=== PATIENT | female | born 1990 | race Caucasian/White ===

== ENCOUNTER 2017-03-08 19:58 | Emergency (ER) | payer MEDICAID ==
[~2017-03-08] VITALS: Ht 167.6 cm; Wt 60.0 kg
[~2017-03-08 19:58] MED LIST: CIPR500T4 PO; IBUP-1542 PO; PREN1TAB62 PO
[2017-03-08 20:21] VITALS: Ht 167.6 cm; Wt 60.0 kg
[2017-03-08] MEDS ORDERED: ONDANSETRON 4 MG INJ IV STA (21:36)
[2017-03-08] MEDS ORDERED: SOD CHLORIDE 0.9% 1,000 ML IV STA (21:36)
[2017-03-08] MEDS ORDERED: ACETAMINOPHEN 325 MG TAB PO STA (21:36)
--- NOTE | 2017-03-08 21:41 | ERD ---
ER Documentation Chief Complaint Date/Time DATE: 03/08/17 TIME: 21:38 Chief Complaint 11wks preg; cramping; n/v x 2 days HPI This pleasant 26-year-old female presents to emergency department today reporting 3, para 1-1, 0. Patient reports lower abdominal cramping, vomiting even though she is using Zofran. Patient states she has not been able to tolerate food or liquid since this morning. Denies vaginal bleeding, or dysuria. ROS All systems reviewed and are negative except as per history of present illness. Medications Home Meds Active Scripts Ciprofloxacin Hcl* (Ciprofloxacin Hcl*) 500 Mg Tablet, 500 MG PO BID for 10 Days , TAB Prov:ZHENG ALEMAN PA-C 03/18/16 Ibuprofen* (Motrin*) 600 Mg Tab, 600 MG PO Q6H Y for PAIN, #40 Prov:DANIELA MORALES MD 03/02/15 Reported Medications Vit-Iron Fumarate-FA ( Vitamin Tablet) 1 Each Tablet, 1 TAB PO DAILY, TAB 02/28/15 Allergies Allergies: Coded Allergies: No Known Allergy (Unverified , 10/04/14) PMhx/Soc Medical and Surgical Hx: pt denies Medical Hx, pt denies Surgical Hx History of Surgery: No Anesthesia Reaction: No Hx Neurological Disorder: No Hx Respiratory Disorders: No Hx Cardiac Disorders: No Hx Psychiatric Problems: No Hx Miscellaneous Medical Probl: No Hx Alcohol Use: No Hx Substance Use: No Hx Tobacco Use: No Smoking Status: Never smoker Physical Exam Vitals Vital Signs Date Time Temp Pulse Resp B/P Pulse Ox O2 Delivery O2 Flow Rate FiO2 03/08/17 20:21 98.7 75 18 143/66 98 Vitals stable, nursing notes reviewed Physical Exam Const: No acute Head: Atraumatic Eyes: Normal Conjunctiva, PERRLA, EOMI ENT: Normal External Ears, Nose and Mouth. Mucous membranes dry, lips are dry Neck: Resp: Chest rise and fall symmetrically ,clear to auscultation bilaterally no respiratory distress Cardio: Regular rate and rhythm, no murmurs Abd: Soft, no abdominal tenderness, no CVA tenderness Skin: Back: Ext: Neur: Awake and alert Psych: Normal Mood and Affect Results 24 hrs Laboratory Tests Test 03/08/17 21:55 Urine Color LT. YELLOW Urine Clarity CLEAR Urine pH 7.0 Urine Specific [place] 1.015 Urine Ketones 15 Urine Nitrite NEGATIVE Urine Bilirubin NEGATIVE Urine Urobilinogen 0.2 E.U./dL Urine Leukocyte Esterase NEGATIVE Urine Hemoglobin NEGATIVE Urine Glucose NEGATIVE% Urine Total Protein NEGATIVE Current Medications Medications (Trade) Dose Ordered Sig/Silvano Route PRN Reason Start Time Stop Time Status Last Admin Dose Admin Sodium Chloride (NS) 1,000 ml @ 1,000 mls/hr Q1H STAT IV 03/08/17 21:36 03/08/17 22:35 DC 03/08/17 21:52 Acetaminophen (Tylenol Tab) 650 mg ONCE STAT PO 03/08/17 21:36 03/08/17 21:38 DC 03/08/17 21:52 Ondansetron HCl (Zofran Inj) 4 mg ONCE STAT IV 03/08/17 21:36 03/08/17 21:38 DC 03/08/17 21:52 Procedures/MDM PROCEDURE: US OB. CLINICAL INDICATION: , nausea. TECHNIQUE: Multiple sonographic images of the pelvis were obtained. Transabdominal views of the pelvis are available for review. The images were reviewed on a PACS workstation. COMPARISON: No prior studies are available for comparison. FINDINGS: The cervix is closed, measuring 4.7 cm. There is a single intrauterine . The crown-rump length equals 5.32 cm which corresponds to a 12-week-0 -day gestational age by ultrasound criteria. cardiac activity measures 154 bpm. No subchorionic hematoma is identified. There is an anterior placenta , grade 0. The right ovary is not visualized. The left ovary measures 3.1 x 1.2 x 2.4 cm. Blood flow is demonstrated to the left ovary. The adnexa are unremarkable. There is no free pelvic fluid. IMPRESSION: 1. Single viable intrauterine gestation of approximately 12 weeks 0 days. 2. The estimated date of delivery is 09/20/2017. Electronically viewed and signed by .Drake Verdugo MD, MD on 03/08/2017 22:55 This pleasant 26-year-old female presents to the emergency department today with nausea, vomiting, and low abdominal cramping. Patient reports , approximately 11 weeks, -10 differential diagnosis includes but not limited to threatened miscarriage, dehydration, irretractable nausea. Urinary tract infection. Patient treated with IV fluid and Zofran effectively, urinalysis negative for any evidence of infection, no leukocytosis nitrates or microscopic hematuria. OB ultrasound shows the cervix is closed measuring 4.7 cm. There is a single intrauterine with a crown to rump length equals 5.32 cm which corresponds to a 12 week-0 day gestational by age by ultrasound criteria, cardiac activity measures 154 bpm. No subchorionic hematoma is identified. There is an anterior placenta, grade 0. Right ovary is not visualized, left ovary measures 3.11.22.4 cm. Blood flow is demonstrated to the left ovary. The adnexa are unremarkable. There is no free pelvic fluid. Estimated gestational delivery of 09/20/2017. Patient will be discharged with Zofran, increase fluids, increase rest, return to emergency department for vomiting not responding to Zofran, dehydration, vaginal bleeding , or pain. I feel the patient is stable for discharge at this time with outpatient management by [employer] ATTENDANT I have discussed results, examination findings, the treatment plan with the patient and family present prior to discharge. Indications for emergent reevaluation, side effects of medication were also discussed. All questions were answered. Patient verbalizes understanding and agrees with plan of care. Departure Diagnosis: Primary Impression: Nausea and vomiting Vomiting type: unspecified Vomiting Intractability: non-intractable Qualified Code: R11.2 - Non-intractable vomiting with nausea, unspecified vomiting type Condition: Good Patient Instructions: Nausea and Vomiting-Adult Additional Instructions: Thank you for for coming to [facility] for your care today. Please ask your nurse or provider if you have questions about your care today and do not leave until all your questions have been answered. Please use any medications given as directed and follow-up with your doctor (or the doctor you were referred to) in the next 2-3 days. If you do not have a primary care doctor you may follow up at the [facility] (listed below). You may also use motrin and tylenol as needed for fever and/or pain unless instructed otherwise by your provider or nurse. Indications for more urgent follow-up have been discussed, but you may return to the Emergency Department at ANY time for any worrisome or worsening symptoms. If you have abdominal pain, please know that no test or exam you received is perfect and you should follow up within 8 hours for continued pain. If you had any imaging studies today, such as an X-Ray or CT Scan, these studies will be reviewed later by a radiologist. You will be called if there are important findings that were not identified today, so make sure the contact information you provided at registration is correct. If you received any narcotic pain control medicine today, such as Vicodin, Morphine or Dilaudid, your coordination and judgment may be affected for a number of hours. Please do not drive or operate heavy machinery, and you may want someone to assist you at home. If you were given a prescription for narcotic medication, be aware that it is very addictive- use sparingly and only if necessary. JOHN KUHN March 08, 2017 21:41
[2017-03-08 22:54] LABS: ADD UMIC NO; URINE BILIRUBIN (Dip) NEGATIVE (NEGATIVE); URINE BLOOD (Dip) NEGATIVE (NEGATIVE); URINE COLOR LT. YELLOW (YELLOW); URINE GLUCOSE (Dip) NEGATIVE (NEGATIVE); URINE KETONES (Dip) 15 (NEGATIVE); URINE LEUKOCYTE ESTERASE (Dip) NEGATIVE (NEGATIVE); URINE NITRITE (Dip) NEGATIVE (NEGATIVE); URINE TOTAL PROTEIN (Dip) NEGATIVE (NEGATIVE); URINE UROBILINOGEN (Dip) 0.2 E.U./dL (0.1-1.0)
--- NOTE | 2017-03-08 22:55 | RADRPT ---
PROCEDURE: US OB. CLINICAL INDICATION: , nausea. TECHNIQUE: Multiple sonographic images of the pelvis were obtained. Transabdominal views of the p leticia are available for review. The images were reviewed on a PACS workstation. COMPARISON: No prior studies are available for comparison. FINDINGS: The cervix is closed, measuring 4.7 cm. There is a single intrauterine . The crown-rump le ngth equals 5.32 cm which corresponds to a 86-mmaq-1-day gestational age by ultrasound criteria. Fe apple cardiac activity measures 154 bpm. No subchorionic hematoma is identified. There is an anterio r placenta, grade 0. The right ovary is not visualized. The left ovary measures 3.1 x 1.2 x 2.4 cm. Blood flow is demon strated to the left ovary. The adnexa are unremarkable. There is no free pelvic fluid. IMPRESSION: 1. Single viable intrauterine gestation of approximately 12 weeks 0 days. 2. The estimated date of delivery is 09/20/2017. RPTAT: HTAR .Drake Verdugo MD, Date Time Electronically viewed and signed by .Drake Verdugo MD, on 03/08/2017 22:55 .R/
[2017-03-08] MEDS ORDERED: ONDA4TAB14 PO (23:32)
== END 2017-03-09 00:30 | disposition home or self-care (01) ==
LOC: FTE 19:58
DX: O21.9 Vomiting of pregnancy, unspecified (principal); Z3A.12 12 weeks gestation of pregnancy
CPT/HCPCS: 36415; 76801; 81003; 96374; J2405; J7030; Z7502; Z7610

== ENCOUNTER 2017-09-14 18:19 | Inpatient (IN) | payer MEDICAID ==
[~2017-09-14] VITALS: Ht 172.7 cm; Wt 72.6 kg
[~2017-09-14 18:19] MED LIST changes: +ONDA4TAB14 PO
[2017-09-14 18:42] VITALS: Ht 172.7 cm; Wt 72.6 kg
--- NOTE | 2017-09-14 20:10 | HP ---
Date/Time of Note Date/Time of Note DATE: 09/14/17 TIME: 20:05 OB - History Hx of Present Free Text/Dictation 27 yo at 39 wks gestation presents in active labor GBS neg. Chief Complaint: labor contractions Estimated Due Date: Sep 22, 2017 : 2 Para: 1 Care: Good Care Obstetrical Complications: None Medical Complications: None Past Family/Social History * Past Medical, Surgical, Family and Obstetric Histories reviewed from chart. OB Admission Exam Physical Exam HEENT: WNL Heart: Rhythm Normal Lungs: Clear, Equal Abdomen: WNL Extremities: Normal Reflexes: Normal Cervical Dilatation: 4cm Effacement: 50% Station: -2 Membranes: Intact Heart Rate: 140's Accelerations: Accelerations Present Decelerations: No Decelerations Varibility: Moderate Contractions on Admission: < 5 Minutes Apart Intensity: Moderate OB Assessment/Plan Reason for admission: active labor Plan: Expectant Management Induction Method: per Pitocin Protocol Other plan: OB ultrasound for EFW Pain meds as needed Augmentation per protocal prn Plan for Copies To: CC: DANIELA MORALES MD, BAHAREH MD Sep 14, 2017 20:10
[2017-09-14] MEDS ORDERED: LACTATED RINGER'S 1,000 ML IV SCH (20:49)
[2017-09-14] MEDS ORDERED: LACTATED RINGER'S 1,000 ML IV PRN (20:53)
[2017-09-14] MEDS ORDERED: CARBOPROST 250 MCG INJ IM PRN ×2 (21:00→23:00)
[2017-09-14] MEDS ORDERED: MISOPROSTOL 200 MCG TAB PR PRN ×2 (21:00→23:00)
[2017-09-14] MEDS ORDERED: OXYTOCIN 30 UNITS/LR 500 ML IV SCH ×2 (21:00)
[2017-09-14] MEDS ORDERED: METHYLERGONOVINE 0.2 MG INJ IM PRN ×2 (21:00→23:00)
[2017-09-14] MEDS ORDERED: LIDOCAINE 1% (MPF) 30 ML INJ INJ PRN (21:00)
[2017-09-14] MEDS ORDERED: BUTORPHANOL 2 MG INJ IV PRN ×2 (21:00)
[2017-09-14] MEDS ORDERED: IBUPROFEN 600 MG TAB PO PRN (21:00)
[2017-09-14] MEDS ORDERED: HYDROCODONE/APAP (5/325) TAB PO PRN (21:00)
[2017-09-14] MEDS ORDERED: OXYTOCIN 30 UNITS/LR 500 ML IV PRN ×2 (21:00→23:00)
--- NOTE | 2017-09-14 22:27 | RADRPT ---
PROCEDURE: US OB. CLINICAL INDICATION: Size and dates TECHNIQUE: Multiple sonographic images of the pelvis and gravid uterus were obtained. The images were reviewed on a PACS workstation. COMPARISON: US PELVIS 03/08/2017 FINDINGS: There is a single viable intrauterine gestation. Cardiac activity is present with 161 beats per min keenan. There is a vertex presentation. The placenta is anterior. There is no evidence for an abruption or placenta previa. There is a decreased amount of amniotic fluid with an DANISHA = 3.6 cm. Measurements were made in order to determine age. The results are as follows: BPD =9.2 cm HC =32.9 cm AC =33.8 cm FL =7.6 cm Estimated gestational age of approximately 37 weeks and 6 days based on ultrasound measurements. Clinical age: 38 weeks and 6 days. The estimated date of delivery is 09/29/17, based on ultrasound measurements. The EFW = 3338 g, 43.7%, based on LMP age. RPTAT: AA IMPRESSION: Single viable intrauterine gestation of approximately 37 weeks and 6 days based on ultrasound measu rements. Oligohydramnios. .Shelton Rodriguez MD, Date Time Electronically viewed and signed by .Shelton Rodriguez MD, on 09/14/2017 22:27 .S/
--- NOTE | 2017-09-14 22:29 | TRIAGE ---
OB Triage Datetime Report Generated by CPN: 09/14/2017 22:29 Datetime: 09/14/2017 21:00 Labor Evaluation Frequency: IRREGULAR Monitor Mode: External Duration (sec)2399: 60-100 Quality: Mild Pattern: Normal: <= 5 Contractions in 10 Minutes Resting Tone [place]: Relaxed Heart Rate FHR Baseline Rate: 135 Monitor Mode: External US FHR Baseline Changes: No Baseline Change Variability: Moderate 6-25 bpm Accelerations: 15X15 Decelerations: None Category: Category I Datetime: 09/14/2017 20:36 Vaginal Exam Dilatation (cms): 4.0 Effacement (%): 70 Station: -3 Exam By: Krystle MOCTEZUMA RN Vaginal Bleeding: None Cervix, Consistency: Soft Cervix, Position: Posterior Presentation 'A': Cephalic Datetime: 09/14/2017 20:31 FHR Baseline Changes: Bradycardia Datetime: 09/14/2017 19:19 Labor Evaluation Frequency: 5-6 Monitor Mode: External Duration (sec)2399: 60-100 Quality: Mild Pattern: Normal: <= 5 Contractions in 10 Minutes Resting Tone [place]: Relaxed Heart Rate FHR Baseline Rate: 145 Monitor Mode: External US FHR Baseline Changes: No Baseline Change Variability: Moderate 6-25 bpm Accelerations: 15X15 Decelerations: None Category: Category I Datetime: 09/14/2017 19:14 Pain Assessment Pain Scale: 6 Pain Presence: Intermittent Pain Type: Contraction Pain Location: Abdomen; Back Pain Relief Measures: Comfort Measures Datetime: 09/14/2017 19:05 Assessment Type: Triage Maternal Assessment Level of Consciousness: Fully Conscious DTR's/Clonus: DTRs 2+; No Clonus Headache: Denies Blurred Vision: No Respiratory Effort: Unlabored; Regular Rhythm; Equal Expansion Breath Sounds, Left: Clear and Equal Breath Sounds, Right: Clear and Equal Nausea/Vomiting: Denies RUQ Epigastric Pain: Denies Lower Extremities Edema: Bilateral Lower Extremities Degree: 1+ Upper Extremities Edema: None Degree: None Facial Edema: None Fall Risk Assessment History of Falling: (0) No Secondary Diagnosis: (0) No Ambulatory Aid: (0) Bedrest/Nurse Assist IV Therapy: (0) No Gait: (0) Normal/Bedrest/Immobile Mental Status: (0) Oriented to Own Ability Fall Score: 0 Fall Risk Score Definition: No Risk: No action required Datetime: 09/14/2017 18:41 Stage of : OB Triage Datetime: 09/14/2017 18:37 Stage of : OB Triage Assessment Type: Triage Maternal Assessment Level of Consciousness: Fully Conscious DTR's/Clonus: DTRs 2+; No Clonus Headache: Denies Blurred Vision: No Respiratory Effort: Unlabored; Regular Rhythm; Equal Expansion Breath Sounds, Left: Clear and Equal Breath Sounds, Right: Clear and Equal Nausea/Vomiting: Denies RUQ Epigastric Pain: Denies Facial Edema: None Temperature Route: Axillary Fall Risk Assessment History of Falling: (0) No Secondary Diagnosis: (0) No Ambulatory Aid: (0) Bedrest/Nurse Assist IV Therapy: (0) No Gait: (0) Normal/Bedrest/Immobile Mental Status: (0) Oriented to Own Ability Fall Score: 0 Fall Risk Score Definition: No Risk: No action required Labor Evaluation Frequency: 3-4 Monitor Mode: External Duration (sec)2399: 50-70 Quality: Mild Pattern: Normal: <= 5 Contractions in 10 Minutes Resting Tone [place]: Relaxed Interventions: Sterile Vaginal Exam Heart Rate FHR Baseline Rate: 145 Monitor Mode: External US Variability: Moderate 6-25 bpm Accelerations: 10X10 Decelerations: None Category: Category I Pain Assessment Pain Scale: 8 Pain Presence: Intermittent Pain Type: Cramping; Contraction Pain Location: Abdomen; Perineum Pain Goal: 3 Pain Relief Measures: Comfort Measures Vaginal Exam Dilatation (cms): 3.0 Effacement (%): 60 Station: -2 Exam By: S JESSICA Membrane Status: Intact Datetime: 09/14/2017 18:36 EGA: 38.6 Datetime: 09/14/2017 18:35 Time of Arrival: 09/14/2017 18:15 Arrived By: Ambulatory Arrived From: Home Chief Complaint: C/O UC'S Q 10-15 MIN THAT STARTED AT APPROX 0400, DENIES LEAKING OR BLEEDING Movement: Present Contractions: Irregular Contractions: 10-15 Rupture of Membranes: Denies Vaginal Bleeding: None Vaginal Discharge: Denies Recent Sexual Intercouse: Denies Abdominal Trauma: Not Applicable Patient Complaints: Contractions; Cramping Time Provider Notified: 09/14/2017 19:18 Provider Notified: DR MCKEON Initial Plan: MONITOR, VE
--- NOTE | 2017-09-14 22:46 | LDN ---
Date/Time of Note Date/Time of Note DATE: 09/14/17 TIME: 22:42 Delivery Summary Weeks of Gestation 2 para 1 at 39 weeks of gestation Baby girl, 9, 9 Weight 3540 grams/7 lbs. 13 oz. Placenta Delivered: Spontaneously Meconium: none Episiotomy: No Laceration repair: First-degree laceration repaired with 2-0 Vicryl Anesthesia type: Local Estimated blood loss: 200 Sponge & Needle done & correct: Yes All needle counts correct: Yes Any foreign bodies felt in the: No Problems: Delivery Information Sex Sex: female Apgars 1 Minute: 9 5 Minute: 9 Suctioning Nose & mouth suctioned at estela: Yes Umbilical Cord Umbilical cord with: 3 Vessels Cord presentations: no nuchal cord Cord Blood was obtained: Yes Mother & Baby Disposition Disposition Mom & Baby to Maternity; Good: Yes Copies To: CC: DANIELA MORALES MD, BAHAREH MD Sep 14, 2017 22:46
[2017-09-14] MEDS ORDERED: WITCH HAZEL/GLYCERIN PAD PR PRN (23:00)
[2017-09-14] MEDS ORDERED: BENZOCAINE 20% 56 ML SPRAY TOP PRN (23:00)
[2017-09-14] MEDS ORDERED: SENNA/DOCUSATE NA (8.6MG/50MG) TAB PO PRN (23:00)
[2017-09-14] MEDS ORDERED: LANOLIN 7 GM TUBE TOP PRN (23:00)
[2017-09-14] MEDS ORDERED: MAGNESIUM HYDROXIDE 30ML CUP PO PRN (23:00)
[2017-09-14] MEDS ORDERED: ONDANSETRON 4 MG INJ IV PRN (23:00)
[2017-09-14] MEDS ORDERED: DIBUCAINE 1% 30 GM OINT PR PRN (23:00)
[2017-09-14] MEDS ORDERED: ACETAMINOPHEN 325 MG TAB PO PRN ×2 (23:00)
[2017-09-14] MEDS: OXYTOCIN 30 UNITS/LR 500 ML IV SCH (23:14)
[2017-09-14 23:30] LABS: BASOPHILS % 0.2 % (0.0-2.0); EOSINOPHILS % 0.3 % (0.0-7.0); HEMATOCRIT 35.5 % (37.0-47.0); LYMPHOCYTES # 1.3 10^3/ul (0.8-2.9); MEAN CORPUSCULAR HEMOGLOBIN 32.3 pg (29.0-33.0); MEAN CORPUSCULAR HGB CONC 33.8 g/dl (32.0-37.0); MEAN CORPUSCULAR VOLUME 95.4 fl (82.0-101.0); MEAN PLATELET VOLUME 12.3 fl (7.4-10.4); MONOCYTE # 0.6 10^3/ul (0.3-0.9); MONOCYTES % 5.4 % (0.0-11.0); NEUTROPHIL # 8.7 10^3/ul (1.6-7.5); NEUTROPHILS % 81.6 % (39.0-77.0); PLATELET COUNT 210 10^3/UL (140-415); RED BLOOD COUNT 3.72 10^6/ul (4.20-5.40); RED CELL DISTRIBUTION WIDTH 12.9 % (11.5-14.5); WHITE BLOOD COUNT 10.6 10^3/ul (4.8-10.8)
[2017-09-15 00:02] LABS: INR 0.95; PROTIME 12.7 Sec (12.2-14.2)
[2017-09-15 00:03] LABS: PARTIAL THROMBOPLASTIN TIME 26.8 Sec (25.0-35.0)
[2017-09-15 01:05] VITALS: BP 124/70; PULSE 83; RESP 17
[2017-09-15] MEDS: LACTATED RINGER'S 1,000 ML IV* SCH ×4 (02:25→16:55)
[2017-09-15] MEDS: OXYTOCIN 30 UNITS/LR 500 ML IV SCH (03:50)
[2017-09-15 04:00] VITALS: BP 120/64; PULSE 91; RESP 18
[2017-09-15] MEDS: IBUPROFEN 600 MG TAB PO PRN ×4 (05:32→23:37)
[2017-09-15 08:00] VITALS: BP 104/70; PULSE 77; RESP 18
[2017-09-15 09:52] LABS: BASOPHILS % 0.1 % (0.0-2.0); EOSINOPHILS % 0.1 % (0.0-7.0); HEMATOCRIT 31.5 % (37.0-47.0); HEMOGLOBIN 10.6 g/dl (12.0-16.0); LYMPHOCYTES # 1.6 10^3/ul (0.8-2.9); LYMPHOCYTES % 11.2 % (15.0-51.0); MEAN CORPUSCULAR HEMOGLOBIN 32.2 pg (29.0-33.0); MEAN CORPUSCULAR HGB CONC 33.7 g/dl (32.0-37.0); MEAN CORPUSCULAR VOLUME 95.7 fl (82.0-101.0); MEAN PLATELET VOLUME 12.5 fl (7.4-10.4); MONOCYTE # 0.8 10^3/ul (0.3-0.9); MONOCYTES % 5.9 % (0.0-11.0); NEUTROPHIL # 11.5 10^3/ul (1.6-7.5); NEUTROPHILS % 82.3 % (39.0-77.0); PLATELET COUNT 180 10^3/UL (140-415); RED BLOOD COUNT 3.29 10^6/ul (4.20-5.40); RED CELL DISTRIBUTION WIDTH 12.7 % (11.5-14.5)
--- NOTE | 2017-09-15 11:31 | PN ---
Date/Time of Note Date/Time of Note DATE: 09/15/17 TIME: 11:30 OB Subjective Subjective Subjective Patient without complaints. . Tolerating regular diet. Ambulating. Pain controlled. OB Objective Objective Objective Gen: NAD Abd: FF OB Assessment/Plan Other Assessment: PPD1 Other plan: -continue routine care -anticipate discharge home tomorrow KELBY SOTO Sep 15, 2017 11:31
[2017-09-15 15:27] VITALS: BP 113/69; PULSE 84; RESP 17
[2017-09-15 19:30] VITALS: BP 114/77; PULSE 83; RESP 17
[2017-09-16 04:20] VITALS: BP 107/67; PULSE 74; RESP 18
[2017-09-16] MEDS: IBUPROFEN 600 MG TAB PO PRN ×2 (05:41→13:13)
[2017-09-16 08:00] VITALS: BP 101/62; PULSE 86; RESP 17
--- NOTE | 2017-09-16 12:49 | DS ---
Date/Time of Note Date/Time of Note DATE: 09/16/17 TIME: 12:49 Obstetrical Discharge Record Final Diagnosis Final Diagnosis: Term delivered Vaginal Delivery Obstetrical Delivery: Spontaneous Condition on Discharge Physical Assessment Voiding: Yes Bowel Movement: Yes Breast: Soft, non-tender Fundus: Firm Calf Tenderness: No Patient Condition: Stable JET LEO MD Sep 16, 2017 12:49
== END 2017-09-16 15:24 | disposition home or self-care (01) | DRG 775 ==
LOC: OBT 18:19 → L-D 18:21 → OBT 20:40 → L-D 20:40 → PP1 09-15 01:07
PROVIDERS: ADMIT Obstetrics & Gynecology; ATTEND Obstetrics & Gynecology
PROC: 10E0XZZ Delivery of Products of Conception, External Approach (ICD-10-PCS; principal; 2017-09-14)
PROC: 0HQ9XZZ Repair Perineum Skin, External Approach (ICD-10-PCS; 2017-09-14)
DX: O70.0 First degree perineal laceration during delivery (principal); Z37.0 Single live birth; Z3A.39 39 weeks gestation of pregnancy
CPT/HCPCS: 36415; 76815; 85025; 85610; 85730; 86592; 86900; 86901; 87340; G0463; J2590; J7120

== ENCOUNTER 2017-09-19 14:23 | Emergency (ER) | payer MEDICAID ==
[~2017-09-19] VITALS: Wt 67.8 kg
[~2017-09-19 14:23] MED LIST changes: -ONDA4TAB14 PO
--- NOTE | 2017-09-19 15:36 | ERD ---
ER Documentation Chief Complaint Chief Complaint HAS HEMORRHOIDS ,HAS RECTAL PAIN HPI 27-year-old female, status post normal spontaneous vaginal delivery 4 days ago, presents to the emergency department complaining of rectal itching and a rectal lump for 2 days. Denies rectal bleeding, no fever, no abdominal pain, no urinary symptoms. She is using a abdominal binder ROS All systems reviewed and are negative except as per history of present illness. Medications Home Meds Active Scripts Docusate Sodium* (Colace*) 100 Mg Capsule, 100 MG PO TID for CONSTIPATION, #30 CAP Prov:SOFIE AYALA MD 09/19/17 Triamcinolone Acetonide (Triamcinolone Acetonide) 0.025% - 60 Ml Lotion, 1 APPLIC TOP QID for INFLAMATION, #1 TUB Prov:SOFIE AYALA MD 09/19/17 Hydrocodone/Acetaminophen ([place] 5-325 Tablet) 1 Each Tablet, 1 TAB PO Q8 Y for PAIN, #12 TAB Prov:SOFIE AYALA MD 09/19/17 Ciprofloxacin Hcl* (Ciprofloxacin Hcl*) 500 Mg Tablet, 500 MG PO BID for 10 Days , TAB Prov:ZHENG ALEMAN PA-C 03/18/16 Ibuprofen* (Motrin*) 600 Mg Tab, 600 MG PO Q6H Y for PAIN, #40 Prov:DANIELA MORALES MD 03/02/15 Reported Medications Vit-Iron Fumarate-FA ( Vitamin Tablet) 1 Each Tablet, 1 TAB PO DAILY, TAB 02/28/15 Discontinued Scripts Ondansetron (Ondansetron Odt) 4 Mg Tab.rapdis, 4 MG PO Q6H Y for NAUSEA AND/OR VOMITING, #10 TAB Prov:HATTIEJOHN 03/08/17 Allergies Allergies: Coded Allergies: No Known Allergy (Unverified , 10/04/14) PMhx/Soc History of Surgery: No Anesthesia Reaction: No Hx Neurological Disorder: No Hx Respiratory Disorders: No Hx Cardiac Disorders: No Hx Psychiatric Problems: No Hx Miscellaneous Medical Probl: No Hx Alcohol Use: No Hx Substance Use: No Hx Tobacco Use: No Physical Exam Vitals Vital Signs Date Time Temp Pulse Resp B/P Pulse Ox O2 Delivery O2 Flow Rate FiO2 11/29/17 14:24 97.8 74 18 139/87 99 Physical Exam Patient is in no acute distress, vital signs stable. Alert and fully oriented. EYES: PERRLA, EOMI, Sclera and conjunctiva appear normal. EARS: Canals clear, tympanic membranes WNL THROAT: Normal oropharynx. NECK: Supple, No lymphadenopathy. Full ROM without pain or tenderness. HEART: RRR, no rubs, murmurs, clicks or gallops. LUNGS: Clear to auscultation. ABDOMEN: Soft, non-tender without masses or hepatosplenomegaly. Rectal: Inspection: 1 cm hemorrhoid, without evidence of thrombosis. No normal sphincter, no rectal masses, no rectal bleeding. Procedures/MDM 27-year-old female status post 4 days ago presents complaining of 2 days of rectal lump with itchiness. Vital signs stable, Physical exam revealed a 1 cm nonthrombosed hemorrhoid. Differential diagnosis include but not limited to : Fissure, Abscess, cellulitis, neoplasm. Low suspicion for abscess. Physical examination and clinical presentation consistent most likely with hemorrhoid. During the ED course the patient remained stable, no new complaints. Results and clinical impression discussed with patient who agrees with management. The patient is stable to be treated outpatient. Side effects of prescribed medications (headache, rash, nausea, vomiting, diarrhea) were reviewed. Side effects of prescribed opiates (drowsiness, habituation) were reviewed. Side effects of prescribed NSAID medication (GI distress, edema, bleeding, HTN) were reviewed. The patient was instructed to follow up with the primary care provider in the next 48h. If symptoms persist, worsen or new symptoms develop, then patient should return to the ED immediately. Instructions explained and given to patient in Amharic with acknowledgment and demonstrated understanding. Disclaimer: Inadvertent spelling and grammatical errors are likely due to EHR/ dictation software use and do not reflect on the overall quality of patient care. Also, please note that the electronic time recorded on this note does not necessarily reflect the actual time of the patient encounter. Departure Diagnosis: Primary Impression: Hemorrhoids Condition: Stable Patient Instructions: Hemorrhoids Additional Instructions: Call your primary care doctor TOMORROW for an appointment during the next 1-2 days. See the doctor sooner or return here if your condition worsens before your appointment time. Thank you very much for allowing us to participate in your care. Your health and safety is our top priority at [facility] [place]. Have prescriptions filled and follow precisely the directions on the label. Follow-up with primary care provider during the next 4 days and bring all the information and medications prescribed. If illness has not improved in 2 days, then make an appointment with primary care provider. If the provider is unavailable, return to the Emergency Department immediately. SOFIE AYALA MD Sep 19, 2017 15:36
[2017-09-19] MEDS ORDERED: HYDR-906 PO (15:38)
[2017-09-19] MEDS ORDERED: TRIA60LO10 TOP (15:39)
[2017-09-19] MEDS ORDERED: DOCU-144 PO (15:40)
== END 2017-09-19 16:04 | disposition home or self-care (01) ==
LOC: FTE 14:23
DX: K64.9 Unspecified hemorrhoids (principal)
CPT/HCPCS: 99284

== ENCOUNTER 2017-10-19 21:51 | Emergency (ER) | END 2017-10-20 04:34 | disposition left against medical advice (07) ==

== ENCOUNTER 2017-12-31 05:38 | Day surgery (SDC) | END 2017-12-31 10:18 | disposition home or self-care (01) ==

== ENCOUNTER 2018-07-29 18:18 | Emergency (ER) | END 2018-07-29 20:37 | disposition home or self-care (01) ==

== ENCOUNTER 2018-08-19 20:37 | Emergency (ER) | END 2018-08-20 01:40 | disposition home or self-care (01) ==

== ENCOUNTER 2019-07-17 15:14 | Emergency (ER) | payer MEDICAID ==
[~2019-07-17] VITALS: Ht 167.6 cm; Wt 64.8 kg
[~2019-07-17 15:14] MED LIST changes: +ALBU8.5H8 INH; +AZIT250T PO; +BENZ-6 PO; +CEPH-443 PO; +CETI10CA PO; -CIPR500T4 PO; +GUAI120S25 PO; +IBUP-1561 PO; -PREN1TAB62 PO
[2019-07-17 16:05] VITALS: BP 141/94; PULSE 89; RESP 18; Ht 167.6 cm; Wt 64.8 kg
== END 2019-07-17 19:17 | disposition home or self-care (01) ==
LOC: FTE 15:14
DX: N39.0 Urinary tract infection, site not specified (principal)
CPT/HCPCS: 76830; 76856; 80053; 81001; 84703; 85025; Z7502